=== PATIENT | female | born 1945 | race Caucasian/White ===

== ENCOUNTER 2022-07-10 21:56 | Emergency (ER) | payer MEDICARE, OTHER ==
--- NOTE | 2022-07-10 22:22 | ED Physician Documentation ---
PD HPI CHEST PAIN - Stated complaint Stated Complaint: HIGH BP - Chief complaint Chief Complaint: Cardiac - History obtained from History obtained from: Patient, Family () - History of Present Illness Timing - onset: Today (She was taking her husbands blood pressure and then decided to take her own and noted to be quite elevated at 184/110. They took it again a couple of times and it remained elevated. No headache, chest pain, dyspnea.) Timing - onset during: Rest, Light activity Timing - details: Other (unknown duration of elevated blood pressure. Had not had it checked for couple of weeks with last chemo and was elevated at 160 systolic then. Previously has been 130-140 systolic on current meds. She had been advised from Oncology that HTN could be side effect of new chemo.) Quality: No: Pressure, Tightness, Tearing Location: No: Substernal, Left chest Worsened by: Other (does not have pain nor pressure. no dyspnea, headache nor blurred vision.) Associated symptoms: No: Diaphoresis, Nausea, Feeling faint / dizzy, Palpitations, Cough Similar symptoms before: Has not had sx before Review of Systems Eyes: denies: Loss of vision, Decreased vision GI: denies: Abdominal Swelling, Nausea, Vomiting, Diarrhea Musculoskeletal: denies: Neck pain, Back pain Neurologic: denies: Generalized weakness, Near syncope, Confused, Altered mental status, Headache PD PAST MEDICAL HISTORY - Past Medical History Cardiovascular: Coronary artery disease Respiratory: None Neuro: None Endocrine/Autoimmune: None Other Past Medical History: multiple myeloma - Allergies Allergies/Adverse Reactions: Allergies Allergy/AdvReac Type Severity Reaction Status Date / Time hydrocodone Allergy Unknown Verified 07/10/22 22:13 - Living Situation Living Situation: reports: With spouse/s.o. Living Arrangement: reports: At home - Social History Does the pt smoke?: No Does the pt have substance abuse?: No PD ED PE NORMAL - Vitals Vital signs reviewed: Yes - General General: Alert and oriented X 3, Well developed/nourished - Neck Neck: Supple, no meningeal sign, No adenopathy, No JVD - Cardiac Cardiac: RRR, No murmur - Respiratory Respiratory: Clear bilaterally - Abdomen Abdomen: Soft, Non tender - Derm Derm: Normal color, Warm and dry - Extremities Extremities: No edema, No calf tenderness / cord - Neuro Neuro: Alert and oriented X 3, No motor deficit, No sensory deficit, Normal speech Results - Vitals Vitals: Vital Signs - 24 hr 07/10/22 07/10/22 07/10/22 22:10 22:30 23:16 Temperature 36.5 C Heart Rate 88 84 77 Respiratory 18 18 16 Rate Blood Pressure 193/108 H 174/87 H 151/81 H O2 Saturation 98 96 96 Oxygen O2 Source Room air - EKG (time done) 22:08 Rate: Rate (enter#) (84) Rhythm: NSR [place]arton: Normal Intervals: Normal AK QRS: Normal, Poor R wave progression Ischemia: Q waves (lateral and inferior. No acute ischemic changes. ) - Labs Labs: Laboratory Tests 07/10/22 07/10/22 22:28 22:28 WBC 4.3 L RBC 3.39 L Hgb 12.0 Hct 34.3 L MCV 101.2 H MCH 35.4 H MCHC 35.0 RDW 14.3 Plt Count 103 L MPV 11.6 H Neut # (Auto) 1.6 Lymph # (Auto) 1.6 Coffey # (Auto) 1.0 Eos # (Auto) 0.1 Baso # (Auto) 0.0 Absolute Nucleated RBC 0.03 Nucleated RBC % 0.7 Sodium 135 Potassium 4.1 Chloride 104 Carbon Dioxide 24 Anion Gap 7.0 BUN 19 Creatinine 0.7 Estimated GFR (MDRD) 81 L Glucose 113 H Calcium 10.0 Magnesium 2.3 Total Bilirubin 0.8 AST 16 ALT 20 Alkaline Phosphatase 75 Total Protein 6.8 Albumin 4.0 Globulin 2.8 Albumin/Globulin Ratio 1.4 Lipase 85 H PD MEDICAL DECISION MAKING - ED course Complexity details: reviewed results, re-evaluated patient (The blood pressure came down without intervention. We can have her increase her amlodipine from 5 to 10 mg. Keep the metoprolol as is. Follow-up with her oncology this coming week.), considered differential, d/w patient Departure - Departure Disposition: Home, Self Care Clinical Impression: Elevated blood pressure reading Condition: Stable Record reviewed to determine appropriate education?: Yes Instructions: ED Hypertension Conf Out Of Control Follow-Up: Hemal Cronin MD [Primary Care Provider] - Comments: Your blood pressure was elevated at home and initially here. It drifted down to a reasonable level without any added medicines here. Presume the added dose of amlodipine may be having some effect. I would continue usual medicines with the change of increasing your amlodipine from the current 5 mg daily to 10 mg daily. This seems reasonable given your last couple of blood pressures. Low-salt diet. Contact your oncologist/primary care Tuesday and advise of this visit and blood pressure readings. See if they want to do any other changes. Check your blood pressure twice daily and record it over the next 4 to 5 days to establish a trend. Elevated blood pressure that is quite high is particularly concerning if associated with symptoms such as headache, confusion, blurred vision, chest pain or shortness of breath. Otherwise he can be managed at home with trying relaxing and rest and see if it trends down on its own over several hours or so. Discharge Date/Time: 07/10/22 23:16
[2022-07-10 22:32] LABS: EOSINOPHILS # (AUTO) 0.1 10^3/uL (0.0-0.7); EOSINOPHILS % (AUTO) 2.1 %; HCT - HEMATOCRIT 34.3 % (37.0-47.0); LYMPHOCYTES # (AUTO) 1.6 10^3/uL (1.5-3.5); LYMPHOCYTES % (AUTO) 37.7 %; MEAN CORPUSCULAR HEMOGLOBIN 35.4 pg (27.0-31.0); MEAN CORPUSCULAR VOLUME 101.2 fL (81.0-99.0); MEAN PLATELET VOLUME 11.6 fL (7.9-10.8); MONOCYTES % (AUTO) 22.1 %; NEUTROPHILS # (AUTO) 1.6 10^3/uL (1.5-6.6); NEUTROPHILS % (AUTO) 37.6 %; NRBC ABSOLUTE COUNT (AUTO) 0.03 x10^3/uL; NUCLEATED RED BLOOD CELLS AUTO 0.7 /100WBC; PLT - PLATELET COUNT 103 10^3/uL (130-450); RED BLOOD COUNT 3.39 10^6/uL (4.20-5.40); RED CELL DISTRIBUTION WIDTH 14.3 % (12.0-15.0); WHITE BLOOD COUNT 4.3 x10^3/uL (4.8-10.8)
[2022-07-10 22:45] LABS: ALBUMIN/GLOBULIN RATIO 1.4 (1.0-2.2); BILIRUBIN,TOTAL 0.8 mg/dL (0.2-1.0); CREATININE 0.7 mg/dL (0.4-1.0); MAGNESIUM 2.3 mg/dL (1.7-2.8); POTASSIUM 4.1 mmol/L (3.5-5.0); TOTAL PROTEIN 6.8 g/dL (6.7-8.2)
[2022-07-10 23:17] VITALS: BP 151/81
== END 2022-07-10 23:16 | disposition home or self-care (01) ==
LOC: ED 21:56
DX: R03.0 Elevated blood-pressure reading, without diagnosis of hypertension (principal)
CPT/HCPCS: 36415; 80053; 83690; 83735; 85025; 93005; 99283; 99284

== ENCOUNTER 2024-02-24 08:00 | Outpatient (CLI) | payer MEDICARE | END 2024-02-24 23:59 | disposition home or self-care (01) | LOC: LAB.S 08:00 | PROVIDERS: ATTEND Registered Nurse | DX: R82.79 Other abnormal findings on microbiological examination of urine (principal) | CPT/HCPCS: 87086; 87181 ==

== ENCOUNTER 2024-03-29 08:00 | Outpatient (CLI) | payer MEDICARE ==
--- NOTE | 2024-03-29 10:07 | XRAY Report ---
PROCEDURE: Chest 2V INDICATIONS: COUGH/ COVID+ TECHNIQUE: 2 views of the chest were acquired. COMPARISON: None. FINDINGS: Surgical changes and devices: Right-sided port with the catheter tip at the middle third of the SVC. Clips projecting in the region of the left breast. Lungs and pleura: No pleural effusions or pneumothorax. Lungs are clear. Mediastinum: Mediastinal contours appear normal. Heart size appears prominent. Bones and chest wall: No suspicious bony lesions. Bilateral chronic rib fractures. Overlying soft t issues appear unremarkable. IMPRESSION: No acute cardiopulmonary process identified. Reviewed by: Mal Simpson MD on 03/29/2024 10:06 AM PDT Approved by: Mal Simpson MD on 03/29/2024 10:06 AM PDT Station ID: [id number]
== END 2024-03-29 23:59 | disposition home or self-care (01) ==
LOC: DI.S 08:00
PROVIDERS: ATTEND Registered Nurse
DX: U07.1 COVID-19 (principal); R05.1 Acute cough